=== PATIENT | female | born 1935 | race Caucasian/White ===

== ENCOUNTER 2021-04-24 06:14 | Emergency (ER) | payer MEDICARE, OTHER ==
[~2021-04-24] VITALS: Ht 157.4 cm; Wt 64.8 kg
--- NOTE | 2021-04-24 06:32 | ED GI ---
General Stated Complaint: RECTAL BLEEDING Source of Information: Patient (NU LYONS MD) History of Present Illness Date Seen by Provider: Apr 24, 2021 Time Seen by Provider: 06:27 Initial Comments 85-year-old female presents with bright red per rectum. She reports that this morning that she felt "uncomfortable" in her stomach. The she had a bowel movement and had some blood in it. She reports that she has had to total bowel movements with bright red blood. She is on Xarelto. She denies any actual pain just the uncomfortable feeling in her stomach. She reports that she has had normal stool. No recent dark tarry stool. No nausea or vomiting. No fevers chills or other systemic complaints. (SHANTA GOINS DO) Allergies and Home Medications Allergies Coded Allergies: No Known Drug Allergies (Unverified , 04/24/21) Home Medications Levothyroxine Sodium 50 Mcg Tablet, 50 MCG PO DAILY, (Reported) Last Action: New Order Metoprolol Succinate 100 Mg Tab.er.24h, 100 MG PO DAILY, (Reported) Last Action: New Order Rivaroxaban 20 Mg Tablet, 20 MG PO DAILY, (Reported) Last Action: New Order Patient Home Medication List Home Medication List Reviewed: Yes (SHANTA GOINS DO) Home Medication List Reviewed: Yes (NU LYONS MD) Review of Systems Review of Systems Constitutional: No chills, No fever; weakness Respiratory: Denies Cough, Denies Shortness of Air Cardiovascular: Denies Chest Pain, Denies Lightheadedness Gastrointestinal: See HPI; Denies Abdominal Pain, Denies Constipated, Denies Diarrhea, Denies Nausea; Rectal Bleeding; Denies Vomiting Genitourinary: Denies Burning, Denies Drainage Musculoskeletal: no symptoms reported Skin: no symptoms reported Psychiatric/Neurological: No Symptoms Reported Endocrine: No Symptoms Reported Hematologic/Lymphatic: No Symptoms Reported (SHANTA GOINS DO) Constitutional: No dizziness EENTM: No Symptoms Reported Genitourinary: Incontinence Hematologic/Lymphatic: Easy Bleeding (on xarelto), Easy Bruising (on xarelto) (NU LYONS MD) Past Cghumeh-Utjbuh-Urgaqb Hx Past Med/Social Hx: Reviewed Nursing Past Med/Soc Hx (SHANTA GOINS DO) Past Med/Social Hx: Reviewed and Corrections made (NU LYONS MD) Patient Social History Alcohol Use: Denies Use (NU LYONS MD) Past Medical History Surgeries: Yes Abdominal, Appendectomy, Bladder Surgery (pin up surgery), Gallbladder, Hysterectomy, Orthopedic (right knee) Respiratory: No Cardiac: Yes Atrial Fibrillation, Hypertension Neurological: No Reproductive Disorders: No Genitourinary: Yes (stress incontinence) Gastrointestinal: Yes Diverticulosis Musculoskeletal: Yes Arthritis Endocrine: Yes Hypothyroidsim HEENT: No Psychosocial: No Integumentary: No (NU LYONS MD) Physical Exam Vital Signs Vital Signs - First Documented 04/24/21 06:22 Temp 36.3 Pulse 95 Resp 14 B/P (MAP) 150/102 (118) O2 Delivery Room Air (NU LYONS MD) Vital Signs Capillary Refill : (SHANTA GOINS DO) Height/Weight/BMI Height: '" Weight: lbs. oz. kg; BMI Method: General Appearance: no apparent distress Neck: full range of motion Respiratory: lungs clear, normal breath sounds Cardiovascular: normal peripheral pulses, regular rate, rhythm, no edema Gastrointestinal: non tender, soft Extremities: normal range of motion, non-tender Neurologic/Psychiatric: alert, normal mood/affect, oriented x 3 Skin: normal color, warm/dry (SHANTA GOINS DO) Rectal: heme positive stool (blood present at rectum.); No hemorrhoids (no obvious hemorrhoids present on exam), No tenderness (NU LYONS MD) Progress/Results/Core Measures Results/Orders Lab Results Laboratory Tests Test 04/24/21 06:40 Range/Units White Blood Count 6.7 4.3-11.0 10^3/uL Red Blood Count 4.62 4.35-5.85 10^6/uL Hemoglobin 14.9 11.5-16.0 G/DL Hematocrit 45 35-52 % Mean Corpuscular Volume 98 80-99 FL Mean Corpuscular Hemoglobin 32 25-34 PG Mean Corpuscular Hemoglobin Concent 33 32-36 G/DL Red Cell Distribution Width 13.8 10.0-14.5 % Platelet Count 297 130-400 10^3/uL Mean Platelet Volume 9.6 7.4-10.4 FL Immature Granulocyte % (Auto) 0 % Neutrophils (%) (Auto) 61 42-75 % Lymphocytes (%) (Auto) 24 12-44 % Monocytes (%) (Auto) 9 0-12 % Eosinophils (%) (Auto) 4 0-10 % Basophils (%) (Auto) 1 0-10 % Neutrophils # (Auto) 4.1 1.8-7.8 X 10^3 Lymphocytes # (Auto) 1.6 1.0-4.0 X 10^3 Monocytes # (Auto) 0.6 0.0-1.0 X 10^3 Eosinophils # (Auto) 0.3 0.0-0.3 10^3/uL Basophils # (Auto) 0.1 0.0-0.1 10^3/uL Immature Granulocyte # (Auto) 0.0 0.0-0.1 10^3/uL Prothrombin Time 16.1 H 12.2-14.7 SEC INR Comment 1.3 0.8-1.4 Activated Partial Thromboplast Time 39 H 24-35 SEC Sodium Level 138 135-145 MMOL/L Potassium Level 4.6 3.6-5.0 MMOL/L Chloride Level 105 98-107 MMOL/L Carbon Dioxide Level 22 21-32 MMOL/L Anion Gap 11 5-14 MMOL/L Blood Urea Nitrogen 14 7-18 MG/DL Creatinine 0.83 0.60-1.30 MG/DL Estimat Glomerular Filtration Rate > 60 BUN/Creatinine Ratio 17 Glucose Level 98 70-105 MG/DL Calcium Level 9.0 8.5-10.1 MG/DL Corrected Calcium 9.1 8.5-10.1 MG/DL Total Bilirubin 1.1 H 0.1-1.0 MG/DL Aspartate Amino Transf (AST/SGOT) 31 5-34 U/L Alanine Aminotransferase (ALT/SGPT) 15 0-55 U/L Alkaline Phosphatase 136 40-136 U/L Total Protein 7.2 6.4-8.2 GM/DL Albumin 3.9 3.2-4.5 GM/DL (NU LYONS MD) My Orders Orders - NU LYONS MD Orthostatic Vital Signs (Adult (04/24/21 07:34) Ed Iv/Invasive Line Start (04/24/21 07:34) Ct Abdomen/Pelvis W (04/24/21 07:57) Iohexol Injection (Omnipaque 350 Mg/Ml 1 (04/24/21 08:00) Received Contrast (Hold Metformin- Contr (04/24/21 08:00) Ns (Ivpb) (Sodium Chloride 0.9% Ivpb Bag (04/24/21 08:00) (NU LYONS MD) Medications Given in ED Current Medications Medications Dose Ordered Sig/Alex Route Start Time Stop Time Status Last Admin Dose Admin Iohexol 100 ml ONCE ONCE IV 04/24/21 08:00 04/24/21 08:14 DC 04/24/21 08:17 100 ML Sodium Chloride 100 ml ONCE ONCE IV 04/24/21 08:00 04/24/21 08:14 DC 04/24/21 08:17 80 ML (NU LYONS MD) Vital Signs/I&O 04/24/21 04/24/21 06:22 07:28 Temp 36.3 Pulse 95 94 87 96 Resp 14 B/P (MAP) 150/102 (118) 181/94 (123) 174/82 (112) 171/89 (116) O2 Delivery Room Air (NU LYONS MD) Progress Progress Note #1: Progress Note I assumed care of the patient at shift change from Dr. Goins. On performing rectal exam on patient she had some bright red blood at rectum, but no bulging, pain, mass or obvious hemorrhoids. Orthostatic vital signs obtained and did not demonstrate signs of orthostasis. Pt reports feeling weak but denies dizziness, lightheaded sensation or chest pains. She denies straining with bowel movements or having constipation. Progress Note #2: Time: 07:51 Progress Note Reviewed with patient that her labs appear stable. She has hemoglobin 14.9. No evidence of severe anemia. Her orthostatic vital signs were not showing signs of orthostasis which helps indicate that her body is compensating and not showing evidence of severe loss of fluid. Her renal function and electrolytes appear stable as well. Her BUN is not elevated which is another sign that she is not metabolizing a lot of blood in her GI tract. The plain film x-rays were nonspecific and did not help to determine if she had a inflammatory process or abdominal mass or active bleeding in her gut. With the renal function stable will add on a CT scan of her abdomen and pelvis. Especially since she reports a history of diverticulosis. This would help to evaluate for diverticulitis or abdominal mass or intra-abdominal bleeding or colitis or rectal mass. Patient was agreeable to having the study done. States she otherwise was stable and hemodynamically doing well with a stable hemoglobin. As well as she has had a bowel movement here without further active bleeding other than the small amount of blood that was seen just at the rectum on my exam of her, she could qualify to have further outpatient work up. This is provided she is not having worsening symptoms or findings on the CT that warrant more emergent treatment. Progress Note #3: Time: 08:[address] scan shows diverticulosis but no diverticulitis or signs of intra-abdominal fluid or bleeding. She has an area in base of lung for consolidation as well as a 7 mm nodule in left lung. She denies symptoms of pneumonia and denies any cough or shortness of breath beyond her baseline. She states that she did have a history of pneumonia where she was sick for over 30 days. These findings may be related to some scarring and atelectasis. In her anal and rectal area she had a 2.8 x 1.7 cm area for possible hematoma. Patient is denying any pain in this area and deferred digital rectal exam. With the initial rectal exam I had only looked at external area since she had some blood present at rectum. She has used the restroom several times due to frequent urination and trouble controlling her bladder which is a chronic issue for her. Despite this she has not had any other bloody stools or blood in her stool. Counseled on follow-up and return cautions. Advised to get a colonoscopy as soon as possible. Counseled on return for worsening bleeding more so than just seen on but on the paper. Advised to try [id number] hemorrhoid treatment. Return in 6 to [address] Camarillo for a CT scan to further evaluate the pulmonary nodule. This would help ensure that it was not changing in size or characterization. Patient voiced understanding and will discharge to home with strict return precautions and education on follow-up for further work-up of the rectal bleeding (NU LYONS MD) Diagnostic Imaging Diagonstic Imaging: Xray Plain Films/CT/US/NM/MRI: abdomen Comments NAME: SERENA MIRZA [facility] REC#: [id number] PT STATUS: REG ER : 1935 PHYSICIAN: SHANTA GOINS DO ADMIT DATE: 04/24/21/ER FS Draft Date of Exam:04/24/21 ABDOMEN FLAT & UPRIGHT/DECUB INDICATION: Abdominal pain, rectal bleeding, weakness. TECHNIQUE: Supine and upright view of the abdomen 6:52 AM CORRELATION STUDY: None FINDINGS: Heart size appears enlarged. Lung bases otherwise clear. Presumed cholecystectomy clips in the right upper quadrant. Mild amount of gaseous distention of the stomach. There are scattered gas-filled loops of small bowel. Gas and stool through the colon. Definitive obstructive appearance is not suggested. There is no differential air-fluid levels. Mild thoracolumbar scoliotic curvature . IMPRESSION: 1. Gas-filled loops bowel throughout the gastrointestinal tract. May reflect a mild ileus. Underlying bowel obstruction not suggested. Dictated on workstation # [id number] Dict: 04/24/21 0702 Trans: 04/24/21 0709 CV [id number] Interpreted by: PEPITO TERRAZAS DO Electronically signed by: Reviewed: Reviewed by Me Diagonstic Imaging: CT Plain Films/CT/US/NM/MRI: abdomen, pelvis Comments NAME: SERENA MIRZA [facility] REC#: [id number] PT STATUS: REG ER : 1935 PHYSICIAN: NU LYONS MD ADMIT DATE: 04/24/21/ER FS Draft Date of Exam:04/24/21 CT ABDOMEN/PELVIS W EXAMINATION: CT abdomen and pelvis with intravenous contrast. TECHNIQUE: Multiple contiguous axial images were obtained through the abdomen and pelvis after the uneventful administration of intravenous contrast. All CT scans use one or more of the following dose optimizing techniques: automated exposure control, MA and/or KvP adjustment based on patient size and exam type or iterative reconstruction. HISTORY: rectal bleeding, on Xarelto, hx diverticulosis COMPARISON: None available. FINDINGS: Lung bases: There are reticulonodular opacities and consolidation within the right lung base. There is a 0.7 cm left lower lobe subpleural pulmonary nodule. Solid organs: The liver is normal without focal lesion. The gallbladder is surgically absent. There is no biliary ductal dilation. Pancreas is normal. Spleen is normal. Adrenal glands are normal. There is left renal cortical scarring. The kidneys are otherwise unremarkable without hydronephrosis. Bowel: There is a small hiatal hernia. There is no bowel obstruction. Scattered colonic diverticulosis. No findings of acute appendicitis. Peritoneum: There is no intraperitoneal free fluid or free air. No suspicious lymphadenopathy. Vasculature: Calcification of the aorta without aneurysm. Musculoskeletal: Degenerative changes of the spine without suspicious osseous lesion or compression fracture. There is a focus of hyperdensity along the left perineum near the anal verge which measures 1.7 x 2.8 cm (series 3 image 79). Pelvis: The uterus is surgically absent. No adnexal mass. The urinary bladder is normal. IMPRESSION: 1. A focus of hyperdensity along the left perineum near the anal verge measuring 2.8 x 1.7 cm. This could represent a small hematoma. Recommend correlation with physical exam. 2. Colonic diverticulosis without findings of diverticulitis. 3. Reticulonodular opacities and consolidation within the right lung base. This finding could be seen with pneumonia. 4. A 0.7 cm left lower lobe subpleural pulmonary nodule. Recommend followup CT chest in 6-12 months to document stability or resolution. Dictated on workstation # [id number] Dict: 04/24/21 0830 Trans: 04/24/21 0836 [facility] [id number] Interpreted by: RODNEY ZUÑIGA DO Electronically signed by: (NU LYONS MD) Departure Impression Primary Impression: Rectal bleeding Additional Impressions: Pulmonary nodule seen on imaging study Diverticulosis Disposition: HOME, SELF-CARE Condition: Stable Departure-Patient Inst. Decision time for Depature: 09:00 (NU LYONS MD) Referrals: MADDY JOHNSNO MAXWELL MD (PCP/Family) Primary Care Physician Patient Instructions: Bloody Stools, Adult ED, Pulmonary Nodule Add. Discharge Instructions: Try using the medicine you have for hemorrhoid treatment to see if that helps resolve your rectal bleeding. Call Dr. Camarillo or the surgeon Dr. Johnson about having a colonoscopy set up as soon as possible to further check into your bleeding from the rectum. In the meantime, If you have worsening bleeding and recurrent bloody stools, more than just the bright red blood on the toilet paper when you wipe to clean yourself, then return or seek medical care for further evaluation. The CT scan had also shown an area with a 7 mm pulmonary nodule in the bottom of your left lung. Since this is a small nodule it is something that can be followed by a repeat CT scan in 6 to 12 months to ensure that it is not getting bigger or changing. This might be from old scarring and previous infection but the repeat CT scan in 6 to 12 months would help check to see if it was something more to worry about. SHANTA GOINS DO Apr 24, 2021 06:32 NU LYONS MD Apr 24, 2021 07:08
--- NOTE | 2021-04-24 07:10 | Diagnostic Imaging Report ---
INDICATION: Abdominal pain, rectal bleeding, weakness. TECHNIQUE: Supine and upright view of the abdomen 6:52 AM CORRELATION STUDY: None FINDINGS: Heart size appears enlarged. Lung bases otherwise clear. Presumed cholecystectomy clips in the right upper quadrant. Mild amount of gaseous distention of the stomach. There are scattered gas-filled loops of small bowel. Gas and stool through the colon. Definitive obstructive appearance is not suggested. There is no differential air-fluid levels. Mild thoracolumbar scoliotic curvature . IMPRESSION: 1. Gas-filled loops bowel throughout the gastrointestinal tract. May reflect a mild ileus. Underlying bowel obstruction not suggested. Dictated by: Dictated on workstation # [id number]
[2021-04-24 07:28] VITALS: BP_SYST 171; BP_SYST 174; BP_SYST 181; BP_DIAS 82; BP_DIAS 89; BP_DIAS 94
[2021-04-24 07:28] LABS: BASOPHILS # (AUTO) 0.1 10^3/uL (0.0-0.1); BASOPHILS % (AUTO) 1 % (0-10); EOSINOPHILS # (AUTO) 0.3 10^3/uL (0.0-0.3); EOSINOPHILS % (AUTO) 4 % (0-10); HEMATOCRIT 45 % (35-52); HEMOGLOBIN 14.9 G/DL (11.5-16.0); LYMPHOCYTES # (AUTO) 1.6 X 10^3 (1.0-4.0); LYMPHOCYTES % (AUTO) 24 % (12-44); MEAN CORPUSCULAR HEMOGLOBIN 32 PG (25-34); MEAN CORPUSCULAR HGB CONC 33 G/DL (32-36); MEAN CORPUSCULAR VOLUME 98 FL (80-99); MEAN PLATELET VOLUME 9.6 FL (7.4-10.4); MONOCYTES # (AUTO) 0.6 X 10^3 (0.0-1.0); MONOCYTES % (AUTO) 9 % (0-12); NEUTROPHILS # (AUTO) 4.1 X 10^3 (1.8-7.8); NEUTROPHILS % (AUTO) 61 % (42-75); PLATELET COUNT 297 10^3/uL (130-400); WHITE BLOOD COUNT 6.7 10^3/uL (4.3-11.0)
[2021-04-24] MEDS ORDERED: RIVA20TA PO (07:29)
[2021-04-24] MEDS ORDERED: LEVO50TA6 PO (07:29)
[2021-04-24] MEDS ORDERED: MTP100TCR PO (07:29)
[2021-04-24 07:30] LABS: BUN/CREATININE RATIO 17; CARBON DIOXIDE 22 MMOL/L (21-32); CHLORIDE 105 MMOL/L (98-107); CREATININE SERUM 0.83 MG/DL (0.60-1.30); GFR ESTIMATED > 60; GLUCOSE 98 MG/DL (70-105); POTASSIUM 4.6 MMOL/L (3.6-5.0); SODIUM 138 MMOL/L (135-145)
[2021-04-24 07:32] LABS: BILIRUBIN,TOTAL 1.1 MG/DL (0.1-1.0)
[2021-04-24 07:35] LABS: ALKALINE PHOSPHATASE 136 U/L (40-136)
[2021-04-24 07:36] LABS: ALANINE AMINOTRANSFERASE 15 U/L (0-55); ALBUMIN 3.9 GM/DL (3.2-4.5); TOTAL PROTEIN 7.2 GM/DL (6.4-8.2)
[2021-04-24 07:38] LABS: INR 1.3 (0.8-1.4); PROTHROMBIN TIME PATIENT 16.1 SEC (12.2-14.7)
[2021-04-24] MEDS ORDERED: IOHEXOL 350 MG/ML 100 ML (OMNIPAQUE 350) VIAL IV ONE (08:00)
[2021-04-24] MEDS ORDERED: NS 100 ML (IVPB) BAG IV ONE (08:00)
[2021-04-24] MEDS ORDERED: HOLD METFORMIN - RECEIVED CONTRAST 20 ML VIAL IV SCH (08:00)
--- NOTE | 2021-04-24 08:37 | Diagnostic Imaging Report ---
EXAMINATION: CT abdomen and pelvis with intravenous contrast. TECHNIQUE: Multiple contiguous axial images were obtained through the abdomen and pelvis after the uneventful administration of intravenous contrast. All CT scans use one or more of the following dose optimizing techniques: automated exposure control, MA and/or KvP adjustment based on patient size and exam type or iterative reconstruction. HISTORY: rectal bleeding, on Xarelto, hx diverticulosis COMPARISON: None available. FINDINGS: Lung bases: There are reticulonodular opacities and consolidation within the right lung base. There is a 0.7 cm left lower lobe subpleural pulmonary nodule. Solid organs: The liver is normal without focal lesion. The gallbladder is surgically absent. There is no biliary ductal dilation. Pancreas is normal. Spleen is normal. Adrenal glands are normal. There is left renal cortical scarring. The kidneys are otherwise unremarkable without hydronephrosis. Bowel: There is a small hiatal hernia. There is no bowel obstruction. Scattered colonic diverticulosis. No findings of acute appendicitis. Peritoneum: There is no intraperitoneal free fluid or free air. No suspicious lymphadenopathy. Vasculature: Calcification of the aorta without aneurysm. Musculoskeletal: Degenerative changes of the spine without suspicious osseous lesion or compression fracture. There is a focus of hyperdensity along the left perineum near the anal verge which measures 1.7 x 2.8 cm (series 3 image 79). Pelvis: The uterus is surgically absent. No adnexal mass. The urinary bladder is normal. IMPRESSION: 1. A focus of hyperdensity along the left perineum near the anal verge measuring 2.8 x 1.7 cm. This could represent a small hematoma. Recommend correlation with physical exam. 2. Colonic diverticulosis without findings of diverticulitis. 3. Reticulonodular opacities and consolidation within the right lung base. This finding could be seen with pneumonia. 4. A 0.7 cm left lower lobe subpleural pulmonary nodule. Recommend followup CT chest in 6-12 months to document stability or resolution. Dictated by: Dictated on workstation # [id number]
[2021-04-24 09:14] VITALS: BP 172/93
== END 2021-04-24 09:14 | disposition home or self-care (01) ==
LOC: ER FS 06:19
DX: K62.5 Hemorrhage of anus and rectum (principal); R91.1 Solitary pulmonary nodule; K57.30 Diverticulosis of large intestine without perforation or abscess without bleeding; I10 Essential (primary) hypertension; E03.9 Hypothyroidism, unspecified; I48.91 Unspecified atrial fibrillation; Z79.890 Hormone replacement therapy; Z79.01 Long term (current) use of anticoagulants; Z79.899 Other long term (current) drug therapy
CPT/HCPCS: 36415; 74019; 74177; 80053; 85025; 85610; 85730

== ENCOUNTER 2021-12-30 10:04 | Emergency (ER) | payer MEDICARE ==
[~2021-12-30 10:04] MED LIST: LEVO50TA6 PO; MTP100TCR PO; RIVA20TA PO
[2021-12-30] MEDS ORDERED: ONDANSETRON 4 MG/2 ML (SDV) Z0FRAN IVP ONE (10:15)
[2021-12-30] MEDS ORDERED: ONDANSETRON 4 MG/2 ML (SDV) Z0FRAN ONE (10:15)
--- NOTE | 2021-12-30 10:15 | ED Neurological Problem ---
General Stated Complaint: STROKE,SLURRED SPEECH,LEFT SIDE FLACID History of Present Illness Date Seen by Provider: Dec 30, 2021 Time Seen by Provider: 10:09 Initial Comments 86-year-old female brought in by EMS. Patient has slurred speech, left-sided weakness and bilateral extremities and face. Patient was last visited with yesterday afternoon by family member and reports she was good. Patient reports that she fell sometime during the night but unsure what time. Patient is alert and orientated. Allergies and Home Medications Allergies Coded Allergies: No Known Drug Allergies (Unverified , 04/24/21) Patient Home Medication List Home Medication List Reviewed: Yes Levothyroxine Sodium (Levothyroxine Sodium) 50 Mcg Tablet, 50 MCG PO DAILY, (Reported) Entered as Reported by: NU LYONS on 04/24/21728 Metoprolol Succinate (Metoprolol Succinate) 100 Mg Tab.er.24h, 100 MG PO DAILY, (Reported) Entered as Reported by: NU LYONS on 04/24/21728 Rivaroxaban (Xarelto) 20 Mg Tablet, 20 MG PO DAILY, (Reported) Entered as Reported by: NU LYONS on 04/24/21728 Review of Systems Review of Systems Constitutional: see HPI Respiratory: no symptoms reported Cardiovascular: no symptoms reported Gastrointestinal: no symptoms reported Musculoskeletal: see HPI Skin: no symptoms reported Psychiatric/Neurological: See HPI Past Aqttmrf-Iplngo-Zjzaeg Hx Seasonal Allergies Seasonal Allergies: No Past Medical History Surgeries: Yes Abdominal, Appendectomy, Bladder Surgery, Gallbladder, Hysterectomy, Orthopedic Respiratory: No Cardiac: Yes Atrial Fibrillation, Hypertension Neurological: No Reproductive Disorders: No Genitourinary: Yes (stress incontinence) Gastrointestinal: Yes Diverticulosis Musculoskeletal: Yes Arthritis Endocrine: Yes Hypothyroidsim HEENT: No Cancer: No Psychosocial: No Integumentary: No Blood Disorders: No Physical Exam Vital Signs Vital Signs - First Documented 12/30/21 12/30/21 10:04 11:45 Temp 36.0 Pulse 115 Resp 19 B/P (MAP) 196/114 (141) Pulse Ox 96 O2 Delivery Nasal Cannula O2 Flow Rate 2.00 Capillary Refill : Height, Weight, BMI Height: '" Weight: lbs. oz. kg; 26.00 BMI Method: General Appearance: no apparent distress, other (Obvious right-sided facial droop) Respiratory: lungs clear, normal breath sounds Cardiovascular: tachycardia, irregularly irregular Gastrointestinal: soft Neurologic/Psychiatric: alert, other (Left-sided facial droop left-sided weakness upper and lower extremities) Crainal Nerves: abnormal speech, facial droop Motor/Sensory: weak motor strength LUE, weak motor strength LLE Skin: normal color, warm/dry Stroke NIH Stroke Scale Assessment Select: Initial Level of Consciousness: 0=Alert (0), Level of Consciousness- Questions: 0=Answers both month/age (0), LOC Commands: 1=Performs one task (1), Gaze: Partial Gaze Palsy (1), Facial Movement (Facial Paresis): 3=Complete paralysis (3), Motor Function-Arms Right: 0=No drift (0), Motor Function-Arms Left: 4=No movement (4), Motor Function-Legs Right: 0=No drift (0), Motor Function-Legs Left: 4=No movement (4), Limb Ataxia: 1=Present in one limb (1), Best Language: 1=Mild to moderat aphasia (1), Dysarthria: 1=Mild to moderate loss (1), Extinction & Inattention: 1=Visual,tactile,auditory (1), Total: 17 Progress/Results/Core Measures Results/Orders Lab Results Laboratory Tests Test 12/30/21 10:10 12/30/21 10:20 12/30/21 10:37 Range/Units Sodium Level 139 135-145 MMOL/L Potassium Level 3.7 3.6-5.0 MMOL/L Chloride Level 101 98-107 MMOL/L Carbon Dioxide Level 22 21-32 MMOL/L Anion Gap 16 H 5-14 MMOL/L Blood Urea Nitrogen 13 7-18 MG/DL Creatinine 0.63 0.60-1.30 MG/DL Estimat Glomerular Filtration Rate 86 BUN/Creatinine Ratio 21 Glucose Level 166 H 70-105 MG/DL Calcium Level 9.4 8.5-10.1 MG/DL Corrected Calcium 9.2 8.5-10.1 MG/DL Total Bilirubin 1.6 H 0.1-1.0 MG/DL Aspartate Amino Transf (AST/SGOT) 34 5-34 U/L Alanine Aminotransferase (ALT/SGPT) 17 0-55 U/L Alkaline Phosphatase 145 H 40-136 U/L Troponin I < 0.30 <0.30 NG/ML Total Protein 8.3 H 6.4-8.2 GM/DL Albumin 4.3 3.2-4.5 GM/DL White Blood Count 11.9 H 4.3-11.0 10^3/uL Red Blood Count 4.63 3.80-5.11 10^6/uL Hemoglobin 15.2 11.5-16.0 g/dL Hematocrit 45 35-52 % Mean Corpuscular Volume 97 80-99 fL Mean Corpuscular Hemoglobin 33 25-34 pg Mean Corpuscular Hemoglobin Concent 34 32-36 g/dL Red Cell Distribution Width 13.2 10.0-14.5 % Platelet Count 132 130-400 10^3/uL Mean Platelet Volume 10.4 9.0-12.2 fL Immature Granulocyte % (Auto) 0 % Neutrophils (%) (Auto) 89 H 42-75 % Lymphocytes (%) (Auto) 7 L 12-44 % Monocytes (%) (Auto) 4 0-12 % Eosinophils (%) (Auto) 0 0-10 % Basophils (%) (Auto) 0 0-10 % Neutrophils # (Auto) 10.5 H 1.8-7.8 10^3/uL Lymphocytes # (Auto) 0.8 L 1.0-4.0 10^3/uL Monocytes # (Auto) 0.4 0.0-1.0 10^3/uL Eosinophils # (Auto) 0.0 0.0-0.3 10^3/uL Basophils # (Auto) 0.0 0.0-0.1 10^3/uL Immature Granulocyte # (Auto) 0.0 0.0-0.1 10^3/uL Neutrophils % (Manual) 91 % Lymphocytes % (Manual) 2 % Monocytes % (Manual) 7 % Prothrombin Time 15.2 H 12.2-14.7 SEC INR Comment 1.2 0.8-1.4 Activated Partial Thromboplast Time 30 24-35 SEC D-Dimer 2.31 H 0.00-0.49 UG/ML Glucometer 158 H 70-110 MG/DL Urine Color YELLOW Urine Clarity CLEAR Urine pH 7.0 5-9 Urine Specific [place] 1.025 H 1.016-1.022 Urine Protein 2+ H NEGATIVE Urine Glucose (UA) TRACE H NEGATIVE Urine Ketones NEGATIVE NEGATIVE Urine Nitrite NEGATIVE NEGATIVE Urine Bilirubin NEGATIVE NEGATIVE Urine Urobilinogen 0.2 < = 1.0 MG/DL Urine Leukocyte Esterase NEGATIVE NEGATIVE Urine RBC (Auto) 2+ H NEGATIVE Urine RBC >100 H /HPF Urine WBC NONE /HPF Urine Squamous Epithelial Cells 2-5 /HPF Urine Crystals NONE /LPF Urine Bacteria NEGATIVE /HPF Urine Casts PRESENT /LPF Urine Hyaline Casts 2-5 H /LPF Urine Mucus NEGATIVE /LPF Urine Culture Indicated NO My Orders Orders - GOINS,SHANTA L DO Ct Head Wo-R/O Stroke (12/30/21 10:05) Cbc With Automated Diff (12/30/21 10:05) Protime With Inr (12/30/21 10:05) Partial Thromboplastin Time (12/30/21 10:05) Comprehensive Metabolic Panel (12/30/21 10:05) Fibrin Degradation Products (12/30/21 10:05) Troponin I Fs (12/30/21 10:05) Ua Culture If Indicated (12/30/21 10:05) Chest 1 View Ap/Pa Only (12/30/21 10:05) Ekg Tracing (12/30/21 10:05) Accucheck Stat ONCE (12/30/21 10:05) Ed Iv/Invasive Line Start (12/30/21 10:05) Ed Iv/Invasive Line Start (12/30/21 10:05) Vital Signs Stroke Patient Q15M (12/30/21 10:05) O2 (12/30/21 10:05) Intake & Output 06,14,22 (12/30/21 10:05) Monitor-Rhythm Ecg Trace Only (12/30/21 10:05) Dysphagia Screening Tool (12/30/21 10:05) Ondansetron Injection (Zofran Injectio (12/30/21 10:15) Ondansetron Injection (Zofran Injectio (12/30/21 10:15) Ns (Ivpb) (Sodium C... W/Nicardipine Iv (12/30/21 10:30) Nicardipine Iv For Drip (Cardene I.V. (O (12/30/21 10:21) Ns (Ivpb) (Sodium Chloride 0.9%) (12/30/21 10:22) Manual Differential (12/30/21 10:20) Metoprolol Tartrate Injection (Lopressor (12/30/21 11:30) Medications Given in ED Current Medications Medications Dose Ordered Sig/Alex Route Start Time Stop Time Status Last Admin Dose Admin Metoprolol Tartrate 5 mg ONCE ONCE IV 12/30/21 11:30 12/30/21 11:31 DC 12/30/21 11:28 5 MG Ondansetron HCl 4 mg ONCE ONCE IVP 12/30/21 10:15 12/30/21 10:16 DC 12/30/21 10:15 4 MG Vital Signs/I&O 12/30/21 12/30/21 10:04 11:45 Temp 36.0 36.0 Pulse 115 134 Resp 19 24 B/P (MAP) 196/114 (141) 148/73 Pulse Ox 96 94 O2 Delivery Nasal Cannula Nasal Cannula O2 Flow Rate 2.00 Progress Progress Note : Progress Note Patient with a intraparenchymal hemorrhage. Patient accepted to neuro ICU [facility]. Patient will be transferred via helicopter. Patient was stable but guarded condition upon transfer CT Read Date: Dec 30, 2021 CT Results/Progress Notes Date of Exam:12/30/21 CT HEAD WO-R/O STROKE PROCEDURE: CT head wo r/o stroke. TECHNIQUE: Multiple contiguous axial images were obtained through the brain without the use of intravenous contrast. Auto Exposure Controls were utilized during the CT exam to meet ALARA standards for radiation dose reduction. INDICATION: Left-sided weakness, facial droop, hypertension COMPARISON: None FINDINGS: The ventricles and cortical sulci are mildly prominent, consistent with generalized parenchymal volume loss. There is a large heterogeneous intraparenchymal hemorrhage in the right occipital region measuring up to 6.3 x 3.8 cm on axial imaging. This causes effacement of the posterior right lateral ventricle. There is no significant midline shift. Scattered areas of hypoattenuation are seen in the white matter, consistent with chronic microvascular disease. No CT evidence of acute territorial ischemia is seen. The calvarium appears intact. Visualized paranasal sinuses are clear. IMPRESSION: 1. Large right occipital intraparenchymal hemorrhage with mild associated mass effect. Departure Impression Primary Impression: Stroke due to intracerebral hemorrhage Disposition: XF SHT-TRM HOSP Condition: Critical Transfer Transfer Reason: Exceeds level of care Time Spoke to Accepting Phy: 10:45 Transfer Progress Notes Patient accepted the [facility], neuro ICU by Transfer Facility: [facility] Method of Transfer: Air Departure-Patient Inst. Referrals: SELF,GEETA RESENDIZ (PCP/Family) Primary Care Physician SHANTA GOINS DO Dec 30, 2021 10:15
[2021-12-30] MEDS ORDERED: niCARdipine IV FOR DRIP 50 MG KIT ONE (10:21)
[2021-12-30] MEDS ORDERED: NS (IVPB) 250 ML ONE (10:22)
[2021-12-30 10:25] LABS: BASOPHILS % (AUTO) 0 % (0-10); EOSINOPHILS % (AUTO) 0 % (0-10); HEMATOCRIT 45 % (35-52); HEMOGLOBIN 15.2 g/dL (11.5-16.0); LYMPHOCYTES # (AUTO) 0.8 10^3/uL (1.0-4.0); LYMPHOCYTES % (AUTO) 7 % (12-44); MEAN CORPUSCULAR HEMOGLOBIN 33 pg (25-34); MEAN CORPUSCULAR HGB CONC 34 g/dL (32-36); MEAN CORPUSCULAR VOLUME 97 fL (80-99); MEAN PLATELET VOLUME 10.4 fL (9.0-12.2); MONOCYTES # (AUTO) 0.4 10^3/uL (0.0-1.0); MONOCYTES % (AUTO) 4 % (0-12); NEUTROPHILS # (AUTO) 10.5 10^3/uL (1.8-7.8); NEUTROPHILS % (AUTO) 89 % (42-75); PLATELET COUNT 132 10^3/uL (130-400); WHITE BLOOD COUNT 11.9 10^3/uL (4.3-11.0)
--- NOTE | 2021-12-30 10:28 | Diagnostic Imaging Report ---
PROCEDURE: CT head wo r/o stroke. TECHNIQUE: Multiple contiguous axial images were obtained through the brain without the use of intravenous contrast. Auto Exposure Controls were utilized during the CT exam to meet ALARA standards for radiation dose reduction. INDICATION: Left-sided weakness, facial droop, hypertension COMPARISON: None FINDINGS: The ventricles and cortical sulci are mildly prominent, consistent with generalized parenchymal volume loss. There is a large heterogeneous intraparenchymal hemorrhage in the right occipital region measuring up to 6.3 x 3.8 cm on axial imaging. This causes effacement of the posterior right lateral ventricle. There is no significant midline shift. Scattered areas of hypoattenuation are seen in the white matter, consistent with chronic microvascular disease. No CT evidence of acute territorial ischemia is seen. The calvarium appears intact. Visualized paranasal sinuses are clear. IMPRESSION: 1. Large right occipital intraparenchymal hemorrhage with mild associated mass effect. Findings discussed with SHANTA GOINS DO by Dr. Vital, on 12/30/2021 10:21 AM. Dictated by: Dictated on workstation # [id number]
[2021-12-30] MEDS ORDERED: niCARdipine IV 50 MG in NS (IVPB) 230 ML IV SCH (10:30)
[2021-12-30 10:34] LABS: ALANINE AMINOTRANSFERASE 17 U/L (0-55); ALBUMIN 4.3 GM/DL (3.2-4.5); ALKALINE PHOSPHATASE 145 U/L (40-136); BILIRUBIN,TOTAL 1.6 MG/DL (0.1-1.0); BUN/CREATININE RATIO 21; CALCIUM 9.4 MG/DL (8.5-10.1); CARBON DIOXIDE 22 MMOL/L (21-32); CHLORIDE 101 MMOL/L (98-107); CREATININE SERUM 0.63 MG/DL (0.60-1.30); GFR ESTIMATED 86; GLUCOSE 166 MG/DL (70-105); POTASSIUM 3.7 MMOL/L (3.6-5.0); SODIUM 139 MMOL/L (135-145); TOTAL PROTEIN 8.3 GM/DL (6.4-8.2)
[2021-12-30 10:40] LABS: LYMPHOCYTES % (MANUAL) 2 %; MONOCYTES % (MANUAL) 7 %; NEUTROPHILS % (MANUAL) 91 %
--- NOTE | 2021-12-30 10:41 | Diagnostic Imaging Report ---
INDICATION: Slurred speech, facial droop, hypertension FINDINGS: The heart is enlarged. There is mild prominence of the vascularity. There is some prominence interstitial lung markings bilaterally in part if not entirely chronic. It would be difficult to exclude a superimposed component of interstitial edema or pneumonitis particularly in the patient's right upper lobe where lung markings are somewhat more dense. The hilar and mediastinal contours were unremarkable. No effusion or pneumothorax. IMPRESSION: Cardiomegaly with some prominence of interstitial lung markings and part chronic however a component of edema or pneumonitis particularly at the level of the right upper lobe could not be excluded. No effusion or pneumothorax . Dictated by: Dictated on workstation # [id number]
[2021-12-30 10:43] LABS: BILIRUBIN,URINE NEGATIVE (NEGATIVE); CLARITY,URINE CLEAR; COLOR,URINE YELLOW; GLUCOSE, URINE (UA) TRACE (NEGATIVE); KETONES,URINE NEGATIVE (NEGATIVE); LEUKOCYTE ESTERASE ,URINE NEGATIVE (NEGATIVE); NITRITE,URINE NEGATIVE (NEGATIVE); PROTEIN,URINE 2+ (NEGATIVE)
[2021-12-30 10:44] LABS: INR 1.2 (0.8-1.4); PROTHROMBIN TIME PATIENT 15.2 SEC (12.2-14.7)
[2021-12-30 10:47] LABS: BACTERIA,URINE NEGATIVE /HPF; RBC,URINE >100 /HPF
[2021-12-30 10:48] LABS: FIBRIN DEGRADATION PRODUCTS 2.31 UG/ML (0.00-0.49)
[2021-12-30] MEDS ORDERED: meTOprolol 5 MG/5 ML (LOPRESSOR) VIAL IV ONE (11:30)
[2021-12-30 11:45] VITALS: BP 148/73
== END 2021-12-30 11:45 | disposition short-term general hospital (02) ==
LOC: EDUNIT# 10:04 → ER FS 10:05
DX: I61.9 Nontraumatic intracerebral hemorrhage, unspecified (principal); I10 Essential (primary) hypertension; I48.91 Unspecified atrial fibrillation; E03.9 Hypothyroidism, unspecified; Z79.01 Long term (current) use of anticoagulants; Z79.890 Hormone replacement therapy; Z79.899 Other long term (current) drug therapy
CPT/HCPCS: 36415; 51702; 70450; 71045; 80053; 81000; 82947; 84484; 85007; 85027; 85379; 85610; 85730; 93005; 93041; 99291

== ENCOUNTER → 2022-01-15 | Outpatient (CLI) | payer MEDICARE ==
[2022-01-15 16:02] LABS: HEMATOCRIT 42 % (35-52); HEMOGLOBIN 14.3 g/dL (11.5-16.0); MEAN CORPUSCULAR HEMOGLOBIN 33 pg (25-34); MEAN CORPUSCULAR HGB CONC 35 g/dL (32-36); MEAN CORPUSCULAR VOLUME 96 fL (80-99); MEAN PLATELET VOLUME 9.7 fL (9.0-12.2); PLATELET COUNT 531 10^3/uL (130-400); WHITE BLOOD COUNT 15.5 10^3/uL (4.3-11.0)
[2022-01-15 16:05] LABS: CLARITY,URINE TURBID; COLOR,URINE RED; GLUCOSE, URINE (UA) TRACE (NEGATIVE); KETONES,URINE 1+ (NEGATIVE); LEUKOCYTE ESTERASE ,URINE 3+ (NEGATIVE); NITRITE,URINE POSITIVE (NEGATIVE); PROTEIN,URINE 3+ (NEGATIVE)
[2022-01-15 16:34] LABS: BACTERIA,URINE LARGE /HPF; BILIRUBIN,URINE 3+ (NEGATIVE); RBC,URINE TNTC /HPF; SQUAMOUS EPITHELIAL CELL,UR 0-2 /HPF; WBC,URINE 50-100 /HPF
[2022-01-15 16:42] LABS: ALBUMIN 2.8 GM/DL (3.2-4.5); BILIRUBIN,TOTAL 0.9 MG/DL (0.1-1.0); CALCIUM 8.6 MG/DL (8.5-10.1); CREATININE SERUM 0.65 MG/DL (0.60-1.30); POTASSIUM 4.8 MMOL/L (3.6-5.0); TOTAL PROTEIN 5.9 GM/DL (6.4-8.2)
== END ==
PROVIDERS: ATTEND Family Medicine
DX: R31.9 Hematuria, unspecified (principal)
CPT/HCPCS: 36415; 80053; 81000; 85027; 87077; 87088

== ENCOUNTER 2022-01-16 17:50 | Emergency (ER) | payer MEDICARE ==
[2022-01-16 18:05] VITALS: BP 135/62
[2022-01-16] MEDS ORDERED: NS IV 1000 ML 1,000 ML IV STA (18:07)
[2022-01-16 18:15] LABS: BASOPHILS # (AUTO) 0.1 10^3/uL (0.0-0.1); BASOPHILS % (AUTO) 0 % (0-10); EOSINOPHILS # (AUTO) 0.1 10^3/uL (0.0-0.3); EOSINOPHILS % (AUTO) 1 % (0-10); HEMATOCRIT 39 % (35-52); HEMOGLOBIN 13.1 g/dL (11.5-16.0); LYMPHOCYTES # (AUTO) 1.4 10^3/uL (1.0-4.0); LYMPHOCYTES % (AUTO) 9 % (12-44); MEAN CORPUSCULAR HEMOGLOBIN 33 pg (25-34); MEAN CORPUSCULAR HGB CONC 33 g/dL (32-36); MEAN CORPUSCULAR VOLUME 98 fL (80-99); MEAN PLATELET VOLUME 9.2 fL (9.0-12.2); MONOCYTES # (AUTO) 1.6 10^3/uL (0.0-1.0); MONOCYTES % (AUTO) 10 % (0-12); NEUTROPHILS # (AUTO) 12.7 10^3/uL (1.8-7.8); NEUTROPHILS % (AUTO) 80 % (42-75); PLATELET COUNT 492 10^3/uL (130-400)
[2022-01-16 18:20] LABS: INR 1.6 (0.8-1.4); PROTHROMBIN TIME PATIENT 19.2 SEC (12.2-14.7)
--- NOTE | 2022-01-16 18:22 | Diagnostic Imaging Report ---
INDICATION: Cough Portable AP view of the chest is obtained with comparison made study of 12/30/2021. Heart size and pulmonary vascularity are at the upper limits of normal. There is mild overall improvement in aeration of the lungs however there is an approximately 1 cm nodule now visible in the lateral aspect of the right upper lobe. No pneumothorax identified. There is slight blunting of the left costophrenic sulcus. IMPRESSION: Improving pulmonary venous congestion, possibly on the basis of congestive heart failure. There may be a small amount of left pleural fluid present. Approximately 1 cm nodular focus projects over the lateral aspect of the right upper lobe. The possibility of lung mass such as developing tumor is not excluded. CT imaging of the chest should be considered for assessment. Dictated by: Dictated on workstation # [id number]
[2022-01-16 18:26] LABS: BILIRUBIN,URINE NEGATIVE (NEGATIVE); CLARITY,URINE SL CLOUDY; COLOR,URINE YELLOW; GLUCOSE, URINE (UA) NEGATIVE (NEGATIVE); KETONES,URINE NEGATIVE (NEGATIVE); LEUKOCYTE ESTERASE ,URINE 1+ (NEGATIVE); NITRITE,URINE NEGATIVE (NEGATIVE); PROTEIN,URINE NEGATIVE (NEGATIVE)
--- NOTE | 2022-01-16 18:29 | ED General ---
General Chief Complaint: General Problems/Pain Stated Complaint: PNEMONIA,UTI SYMPTOMS Source of Information: Patient, EMS, Skilled Nursing Records Exam Limitations: Physical Impairments (recent stroke and slow to answer questions) History of Present Illness Date Seen by Provider: Jan 16, 2022 Time Seen by Provider: 17:52 Initial Comments 86-year-old female presenting for [facility] due to having findings for right lower lobe infiltrate and UTI. She has a catheter that was placed yesterday based on her symptoms. She recently had a stroke and was at [facility] in [place]. She has been at [facility] for the last week. She did have a PEG tube placed for dysphagia and is only taking a few ice chips by mouth. She had findings of a UTI yesterday and when the chest x-ray came back today showing signs of a infiltrate or pneumonia the on-call provider instructed the staff to send her in for evaluation and felt she needed treatment in the hospital rather than at the longterm for her infection. She has been hemodynamically stable and has oxygen saturation 95-97% on room air with no respiratory distress. She does have chronic atrial fibrillation and currently her heart rate is 100-120 and irregularly irregular. Timing/Duration: 1-2 Days Associated Systoms: No Chest Pain; Cough; No Diaphoresis, No Fever/Chills, No Headaches; Malaise; No Nausea/Vomiting, No Seizure, No Shortness of Air, No Syncope; Weakness (general) Allergies and Home Medications Allergies Coded Allergies: No Known Drug Allergies (Unverified , 04/24/21) Patient Home Medication List Home Medication List Reviewed: Yes Levothyroxine Sodium (Levothyroxine Sodium) 50 Mcg Tablet, 50 MCG PO DAILY, (Re ported) Entered as Reported by: NU LYONS on 04/24/21728 Metoprolol Succinate (Metoprolol Succinate) 100 Mg Tab.er.24h, 100 MG PO DAILY, (Reported) Entered as Reported by: NU LYONS on 04/24/21728 Rivaroxaban (Xarelto) 20 Mg Tablet, 20 MG PO DAILY, (Reported) Entered as Reported by: NU LYONS on 04/24/21728 Review of Systems Review of Systems Constitutional: No chills, No fever; malaise EENTM: no symptoms reported Respiratory: cough Cardiovascular: No chest pain; palpitations Gastrointestinal: No nausea, No vomiting Genitourinary: dysuria (matute catheter placed January 15) Skin: no symptoms reported Psychiatric/Neurological: Weakness (general ) Hematologic/Lymphatic: Easy Bleeding (taking blood thinner), Easy Bruising (taking blood thinner) Past Fohovgg-Ifiqdc-Razvjq Hx Patient Social History Tobacco Use?: No Use of E-Cig and/or Vaping dev: No Substance use?: No Alcohol Use?: No Seasonal Allergies Seasonal Allergies: No Past Medical History Surgery/Hospitalization HX: HTN; AFIB; Hypothyroidism, CVA Dec 2021, PEG feeding tube Dec 2021 Surgeries: Yes Abdominal, Appendectomy, Bladder Surgery, Gallbladder, Hysterectomy, Orthopedic Respiratory: No Cardiac: Yes Atrial Fibrillation, Hypertension Neurological: No Reproductive Disorders: No Genitourinary: Yes (stress incontinence) Gastrointestinal: Yes Diverticulosis Musculoskeletal: Yes Arthritis Endocrine: Yes Hypothyroidsim HEENT: No Cancer: No Psychosocial: No Integumentary: No Blood Disorders: No Physical Exam Vital Signs Vital Signs - First Documented 01/16/22 18:05 Temp 36.6 Pulse 74 Resp 18 B/P (MAP) 135/62 (86) Pulse Ox 96 O2 Delivery Room Air Capillary Refill : Height, Weight, BMI Height: '" Weight: lbs. oz. kg; BMI Method: General Appearance: No Apparent Distress HEENT: No Moist Mucous Membranes (slightly dry mucous membranes) Respiratory: Chest Non Tender, No Accessory Muscle Use, No Respiratory Distress, Decreased Breath Sounds Cardiovascular: Normal Peripheral Pulses, Irregularly Irregular, Tachycardia Gastrointestinal: Normal Bowel Sounds, No Pulsatile Mass, Non Tender, Soft Extremity: Normal Capillary Refill, Normal Inspection, Pedal Edema (trace to 1+ BLE. ), Other (air boots on BLE to help keep pressure off heels) Neurologic/Psychiatric: Alert, Oriented x3, Other (slow to answer questions) Skin: Warm/Dry Focused Exam Lactate Level 01/16/22 17:59: Lactic Acid Level 1.28 Lactic Acid Level Laboratory Tests Test 01/16/22 17:59 Lactic Acid Level 1.28 MMOL/L (0.50-2.00) Progress/Results/Core Measures Suspected Sepsis SIRS Temperature: Pulse: Respiratory Rate: Laboratory Tests 01/16/22 17:59: White Blood Count 15.9H Blood Pressure / Mean: 01/16/22 17:59: Lactic Acid Level 1.28 Laboratory Tests 01/16/22 17:59: Creatinine 0.67, INR Comment 1.6H, Platelet Count 492H, Total Bilirubin 0.6 Results/Orders Lab Results Laboratory Tests Test 01/16/22 17:59 01/16/22 18:15 Range/Units White Blood Count 15.9 H 4.3-11.0 10^3/uL Red Blood Count 4.01 3.80-5.11 10^6/uL Hemoglobin 13.1 11.5-16.0 g/dL Hematocrit 39 35-52 % Mean Corpuscular Volume 98 80-99 fL Mean Corpuscular Hemoglobin 33 25-34 pg Mean Corpuscular Hemoglobin Concent 33 32-36 g/dL Red Cell Distribution Width 13.4 10.0-14.5 % Platelet Count 492 H 130-400 10^3/uL Mean Platelet Volume 9.2 9.0-12.2 fL Immature Granulocyte % (Auto) 1 % Neutrophils (%) (Auto) 80 H 42-75 % Lymphocytes (%) (Auto) 9 L 12-44 % Monocytes (%) (Auto) 10 0-12 % Eosinophils (%) (Auto) 1 0-10 % Basophils (%) (Auto) 0 0-10 % Neutrophils # (Auto) 12.7 H 1.8-7.8 10^3/uL Lymphocytes # (Auto) 1.4 1.0-4.0 10^3/uL Monocytes # (Auto) 1.6 H 0.0-1.0 10^3/uL Eosinophils # (Auto) 0.1 0.0-0.3 10^3/uL Basophils # (Auto) 0.1 0.0-0.1 10^3/uL Immature Granulocyte # (Auto) 0.1 0.0-0.1 10^3/uL Neutrophils % (Manual) 84 % Lymphocytes % (Manual) 6 % Monocytes % (Manual) 9 % Eosinophils % (Manual) 0 % Basophils % (Manual) 0 % Band Neutrophils 1 % Prothrombin Time 19.2 H 12.2-14.7 SEC INR Comment 1.6 H 0.8-1.4 Activated Partial Thromboplast Time 40 H 24-35 SEC Sodium Level 131 L 135-145 MMOL/L Potassium Level 4.4 3.6-5.0 MMOL/L Chloride Level 100 98-107 MMOL/L Carbon Dioxide Level 22 21-32 MMOL/L Anion Gap 9 5-14 MMOL/L Blood Urea Nitrogen 35 H 7-18 MG/DL Creatinine 0.67 0.60-1.30 MG/DL Estimat Glomerular Filtration Rate 85 BUN/Creatinine Ratio 52 Glucose Level 187 H 70-105 MG/DL Lactic Acid Level 1.28 0.50-2.00 MMOL/L Calcium Level 8.5 8.5-10.1 MG/DL Corrected Calcium 9.9 8.5-10.1 MG/DL Magnesium Level 2.3 1.6-2.4 MG/DL Total Bilirubin 0.6 0.1-1.0 MG/DL Aspartate Amino Transf (AST/SGOT) 40 H 5-34 U/L Alanine Aminotransferase (ALT/SGPT) 28 0-55 U/L Alkaline Phosphatase 219 H 40-136 U/L Troponin I < 0.30 <0.30 NG/ML C-Reactive Protein 15.55 H <0.50 MG/DL Total Protein 6.1 L 6.4-8.2 GM/DL Albumin 2.2 L 3.2-4.5 GM/DL Urine Color YELLOW Urine Clarity SL CLOUDY Urine pH 6.0 5-9 Urine Specific [place] 1.010 L 1.016-1.022 Urine Protein NEGATIVE NEGATIVE Urine Glucose (UA) NEGATIVE NEGATIVE Urine Ketones NEGATIVE NEGATIVE Urine Nitrite NEGATIVE NEGATIVE Urine Bilirubin NEGATIVE NEGATIVE Urine Urobilinogen 1.0 < = 1.0 MG/DL Urine Leukocyte Esterase 1+ H NEGATIVE Urine RBC (Auto) 3+ H NEGATIVE Urine RBC 10-25 H /HPF Urine WBC 5-10 H /HPF Urine Squamous Epithelial Cells 2-5 /HPF Urine Crystals NONE /LPF Urine Bacteria TRACE /HPF Urine Casts NONE /LPF Urine Mucus NEGATIVE /LPF Urine Culture Indicated YES My Orders Orders - NU LYONS MD Cbc With Automated Diff (01/16/22 18:02) Comprehensive Metabolic Panel (01/16/22 18:02) Blood Culture (01/16/22 18:02) Ua Culture If Indicated (01/16/22 18:02) Chest 1 View Ap/Pa Only (01/16/22 18:02) Ed Iv/Invasive Line Start (01/16/22 18:02) Crp Fs (01/16/22 18:02) Lactic Acid Analyzer (01/16/22 18:02) Ekg Tracing (01/16/22 18:02) Monitor-Rhythm Ecg Trace Only (01/16/22 18:02) Protime With Inr (01/16/22 18:02) Partial Thromboplastin Time (01/16/22 18:02) Troponin I Fs (01/16/22 18:02) Magnesium (01/16/22 18:02) Ns Iv 1000 Ml (Sodium Chloride 0.9%) (01/16/22 18:07) Manual Differential (01/16/22 17:59) Urine Culture (01/16/22 18:15) Ct Chest W (01/16/22 18:59) Iohexol Injection (Omnipaque 350 Mg/Ml 1 (01/16/22 19:15) Received Contrast (Hold Metformin- Contr (01/16/22 19:15) Sodium Chloride Flush (Catheter Flush Sy (01/16/22 19:15) Ns (Ivpb) (Sodium Chloride 0.9% Ivpb Bag (01/16/22 19:15) Ceftriaxone 1 Gm Pre-Mix (Rocephin 1 Gm (01/16/22 21:07) Medications Given in ED Current Medications Medications Dose Ordered Sig/Alex Route Start Time Stop Time Status Last Admin Dose Admin Iohexol 100 ml ONCE ONCE IV 01/16/22 19:15 01/16/22 19:16 DC 01/16/22 19:42 75 ML Sodium Chloride 10 ml NEEDED PRN IV 01/16/22 19:15 01/16/22 21:38 DC 01/16/22 19:42 10 ML Sodium Chloride 100 ml ONCE ONCE IV 01/16/22 19:15 01/16/22 19:16 DC 01/16/22 19:42 100 ML Vital Signs/I&O 01/16/22 01/16/22 01/16/22 01/16/22 18:05 18:57 19:44 20:09 Temp 36.6 Pulse 74 106 98 106 Resp 18 B/P (MAP) 135/62 (86) 116/64 114/51 103/63 Pulse Ox 96 97 93 98 O2 Delivery Room Air Room Air Room Air Room Air 01/16/22 21:16 Pulse 120 Resp 18 B/P (MAP) 113/61 Pulse Ox 95 O2 Delivery Room Air Capillary Refill : Progress Note #1: Progress Note check labs, chest xray, ECG, blood cultures with lactic acid, UA with culture. IVF for hydration 1 L NS. Progress Note #2: Progress Note labs show elevated WBC count consistent with labs from [place] with WBC of 15.9. She has Hgb 13.1. Chemistry shows normal lactic acid of 1.28. Troponin <0.3. Cr ok at 0.67. ECG shows atrial fibrillation with HR117. Elevated CRP to go with infection/inflammation. Elevated coags to go wtih being on blood thinner. UA from indwelling catheter shows UTI findings and some blood, culture was reflexed. CXR shows pulmonary nodule and some vascular congestion changes. Recommend CT scan to evaluate further. Progress Note #3: Progress Note CT report shows mild diffuse vascular congestion and pneumonitis findings along with 1.2 cm RUL pulmonary nodule. Recommend repeat scan in few months to verify stability vs PET scan to further evaluate the nodule. Updated pt and her children. They had initially been concerned she had pneumonia in addition to UTI and possible sepsis so they had requested she come here for eval and thought she would need transfer to or larger facility for higher level of care than [facility]. Pt is still full code and they are wanting aggressive treatment for her. Will give 1 gm Rocephin IV to try and help boost treatment for UTI in addition to IM shot given on 01/15 as well as started antibiotic through PEG tube. Discharge back to [place] to continue antibiotics and give some time for this to work rather than transfer to acute medical care facility since there is no sepsis or pneumonia on top of UTI. She should need additional time for antibiotic to work for her UTI. She is already on meds for A. Fib and CHF so have her continue these meds. ECG Initial ECG Impression Date: Jan 16, 2022 Initial ECG Impression Time: 18:20 Initial ECG Rhythm: A Fib/Flutter Initial ECG Comparisson: Unchanged Comment Atrial fibrillation with heart rate 117 bpm. Borderline T wave abnormalities in the inferior leads with flattening T waves. QT interval 320 ms with a QTc interval 447 ms. There is no acute ST elevation. Overall appears similar to prior tracings in system. Diagnostic Imaging Diagonstic Imaging: Xray Plain Films/CT/US/NM/MRI: chest Comments [facility] [place], [place] NAME: SERENA MIRZA REC#: [id number] PT STATUS: REG ER : 1935 PHYSICIAN: NU LYONS MD ADMIT DATE: 01/16/22/ER FS Signed Date of Exam:01/16/22 CHEST 1 VIEW AP/PA ONLY INDICATION: Cough Portable AP view of the chest is obtained with comparison made study of 12/30/2021. Heart size and pulmonary vascularity are at the upper limits of normal. There is mild overall improvement in aeration of the lungs however there is an approximately 1 cm nodule now visible in the lateral aspect of the right upper lobe. No pneumothorax identified. There is slight blunting of the left costophrenic sulcus. IMPRESSION: Improving pulmonary venous congestion, possibly on the basis of congestive heart failure. There may be a small amount of left pleural fluid present. Approximately 1 cm nodular focus projects over the lateral aspect of the right upper lobe. The possibility of lung mass such as developing tumor is not excluded. CT imaging of the chest should be considered for assessment. Dictated by: Dictated on workstation # [id number] Dict: 01/16/228 Trans: 01/16/222032 [facility] [id number] Interpreted by: MARY ANN PULLIAM MD Electronically signed by: MARY ANN PULLIAM MD 01/16/222032 Reviewed: Reviewed by Fl Diagonstic Imaging: CT Plain Films/CT/US/NM/MRI: chest Comments [facility] [place] [facility], [place] NAME: SERENA MIRZA [facility] REC#: [id number] PT STATUS: REG ER : 1935 PHYSICIAN: NU LYONS MD ADMIT DATE: 01/16/22/ER FS Signed Date of Exam:01/16/22 CT CHEST W PROCEDURE: CT chest with contrast only. TECHNIQUE: Multiple contiguous axial images were obtained through the chest after administration of intravenous contrast. Auto Exposure Controls were utilized during the CT exam to meet ALARA standards for radiation dose reduction. INDICATION: Abnormal chest x-ray with possible lung mass There is mild groundglass density throughout the lungs which may be due to edema or pneumonitis with linear densities in the lung bases likely due to atelectasis or scarring. There is an approximately 1.2 cm nodule with mild marginal irregularity in the right upper lobe, laterally at the level of aortic arch. There is questionable additional 0.5 cm nodule in the subpleural aspect of the right lower lobe, however, this is in region of atelectasis and pneumonitis and may be artifactual. There is no evidence of pathologically enlarged adenopathy. Coronary artery calcification is noted. IMPRESSION: Mild background edema and/or pneumonitis with 1.2 cm suspicious nodule in the periphery of the right upper lobe. This may represent pulmonary neoplasm, however, pneumonitis and atelectasis limits evaluation. This could be further assessed with either PET scan or short-term CT follow-up. If this finding persists or increases, biopsy may be necessary. Dictated by: Dictated on workstation # [id number] Dict: 01/16/221945 Trans: 01/16/222033 [facility] [id number] Interpreted by: MARY ANN PULLIAM MD Electronically signed by: MARY ANN PULLIAM MD 01/16/222033 Reviewed: Reviewed by Me Departure Impression Primary Impression: Cystitis with hematuria Additional Impressions: Right upper lobe pulmonary nodule Chronic atrial fibrillation Chronic heart failure Qualified Codes: I50.9 - Heart failure, unspecified Disposition: 01 HOME, SELF-CARE Condition: Stable Departure-Patient Inst. Decision time for Depature: 21:09 Referrals: GEETA BUTT MD (PCP/Family) Primary Care Physician Patient Instructions: Atrial Fibrillation and Atrial Flutter ED, Heart Failure ED, Urinary Tract Infection, Adult ED, Pulmonary Nodule Add. Discharge Instructions: She was given another dose of antibiotic, Ceftriaxone 1 gm IV here in the ED. Continue antibiotic by feeding tube. Follow up in 3-6 months for repeat scan to see if any change in pulmonary nodule. Continue on medicines for atrial fibrillation and heart failure All discharge instructions reviewed with patient and/or family. Voiced understanding. NU LYONS MD Jan 16, 2022 18:14
[2022-01-16 18:33] LABS: POTASSIUM 4.4 MMOL/L (3.6-5.0)
[2022-01-16 18:34] LABS: ALBUMIN 2.2 GM/DL (3.2-4.5); BILIRUBIN,TOTAL 0.6 MG/DL (0.1-1.0); CALCIUM 8.5 MG/DL (8.5-10.1); CREATININE SERUM 0.67 MG/DL (0.60-1.30); MAGNESIUM 2.3 MG/DL (1.6-2.4); TOTAL PROTEIN 6.1 GM/DL (6.4-8.2)
[2022-01-16 18:35] LABS: BACTERIA,URINE TRACE /HPF
[2022-01-16 18:47] LABS: BAND NEUTROPHILS 1 %; BASOPHILS % (MANUAL) 0 %; EOSINOPHILS % (MANUAL) 0 %; LYMPHOCYTES % (MANUAL) 6 %; MONOCYTES % (MANUAL) 9 %; NEUTROPHILS % (MANUAL) 84 %; WHITE BLOOD COUNT 15.9 10^3/uL (4.3-11.0)
[2022-01-16] MEDS ORDERED: NS 100 ML (IVPB) BAG IV ONE (19:15)
[2022-01-16] MEDS ORDERED: CATHETER FLUSH 10 ML SYR IV PRN (19:15)
[2022-01-16] MEDS ORDERED: HOLD METFORMIN - RECEIVED CONTRAST 20 ML VIAL IV SCH (19:15)
[2022-01-16] MEDS ORDERED: IOHEXOL 350 MG/ML 100 ML (OMNIPAQUE 350) VIAL IV ONE (19:15)
--- NOTE | 2022-01-16 19:58 | Diagnostic Imaging Report ---
PROCEDURE: CT chest with contrast only. TECHNIQUE: Multiple contiguous axial images were obtained through the chest after administration of intravenous contrast. Auto Exposure Controls were utilized during the CT exam to meet ALARA standards for radiation dose reduction. INDICATION: Abnormal chest x-ray with possible lung mass There is mild groundglass density throughout the lungs which may be due to edema or pneumonitis with linear densities in the lung bases likely due to atelectasis or scarring. There is an approximately 1.2 cm nodule with mild marginal irregularity in the right upper lobe, laterally at the level of aortic arch. There is questionable additional 0.5 cm nodule in the subpleural aspect of the right lower lobe, however, this is in region of atelectasis and pneumonitis and may be artifactual. There is no evidence of pathologically enlarged adenopathy. Coronary artery calcification is noted. IMPRESSION: Mild background edema and/or pneumonitis with 1.2 cm suspicious nodule in the periphery of the right upper lobe. This may represent pulmonary neoplasm, however, pneumonitis and atelectasis limits evaluation. This could be further assessed with either PET scan or short-term CT follow-up. If this finding persists or increases, biopsy may be necessary. Dictated by: Dictated on workstation # [id number]
[2022-01-16] MEDS ORDERED: cefTRIAXone 1 GM PRE-MIX 50 ML IV STA (21:07)
== END 2022-01-16 21:36 | disposition home or self-care (01) ==
LOC: EDUNIT# 17:50 → ER FS 17:52
DX: N30.91 Cystitis, unspecified with hematuria (principal); R91.1 Solitary pulmonary nodule; I48.20 Chronic atrial fibrillation, unspecified; I50.9 Heart failure, unspecified
CPT/HCPCS: 36415; 71045; 71260; 80053; 81000; 83605; 83735; 84484; 85007; 85027; 85610; 85730; 86141; 87040; 87077; 87088; 93005; 93041; Q9967

== ENCOUNTER → 2022-03-16 | Outpatient (CLI) | payer MEDICARE ==
[2022-03-16 10:46] LABS: BILIRUBIN,TOTAL 0.7 MG/DL (0.1-1.0); CALCIUM 9.4 MG/DL (8.5-10.1); CREATININE SERUM 0.55 MG/DL (0.60-1.30); POTASSIUM 4.5 MMOL/L (3.6-5.0)
[2022-03-16 10:47] LABS: ALBUMIN 3.3 GM/DL (3.2-4.5); TOTAL PROTEIN 6.3 GM/DL (6.4-8.2)
== END ==
PROVIDERS: ATTEND Family Medicine
DX: I63.411 Cerebral infarction due to embolism of right middle cerebral artery (principal)
CPT/HCPCS: 36415; 80053

== ENCOUNTER → 2022-04-06 | Outpatient (CLI) | payer MEDICARE ==
[2022-04-06 17:39] LABS: BACTERIA,URINE LARGE /HPF; BILIRUBIN,URINE NEGATIVE (NEGATIVE); CLARITY,URINE CLOUDY; COLOR,URINE YELLOW; GLUCOSE, URINE (UA) NEGATIVE (NEGATIVE); KETONES,URINE TRACE (NEGATIVE); LEUKOCYTE ESTERASE ,URINE 2+ (NEGATIVE); NITRITE,URINE POSITIVE (NEGATIVE); PROTEIN,URINE TRACE (NEGATIVE); WBC,URINE TNTC /HPF
== END ==
PROVIDERS: ATTEND Family Medicine
DX: R82.79 Other abnormal findings on microbiological examination of urine (principal)
CPT/HCPCS: 81000; 87088

== ENCOUNTER 2022-04-14 16:09 | Emergency (ER) | payer MEDICARE ==
[2022-04-14] MEDS ORDERED: ONDANSETRON 4 MG/2 ML (SDV) Z0FRAN IVP STA (16:18)
[2022-04-14] MEDS ORDERED: NS IV 1000 ML 1,000 ML IV STA ×2 (16:18→17:27)
[2022-04-14 16:27] LABS: BILIRUBIN,URINE NEGATIVE (NEGATIVE); CLARITY,URINE CLEAR; GLUCOSE, URINE (UA) NEGATIVE (NEGATIVE); KETONES,URINE TRACE (NEGATIVE); LEUKOCYTE ESTERASE ,URINE 2+ (NEGATIVE); NITRITE,URINE POSITIVE (NEGATIVE); PROTEIN,URINE TRACE (NEGATIVE)
[2022-04-14 16:30] LABS: BACTERIA,URINE LARGE /HPF; COLOR,URINE DARK YELLOW; WBC,URINE 50-100 /HPF
--- NOTE | 2022-04-14 16:35 | ED General ---
General Stated Complaint: DECREASED URINE OUTPUT Source of Information: Patient, Long Term Records History of Present Illness Date Seen by Provider: Apr 14, 2022 Time Seen by Provider: 16:09 Initial Comments 86-year-old female presenting from the [facility] with complaints of decreased urine output and decreased oral intake. The patient herself states that she has no complaints or concerns. She has had prior stroke but is communicating with us. She states she has had some nausea and headache at times but none right now. She complains of pain in her left arm that has been present since the stroke. She is currently taking antibiotics for a urinary tract infection and has an indwelling Titus catheter. Her urine is dark in color. Family insisted on the patient coming to be evaluated in the emergency department today. Timing/Duration: 1 Week Severity: Moderate Associated Systoms: No Chest Pain; Cough (intermittent); No Diaphoresis, No Fever/Chills; Headaches (intermittent), Loss of Appetite, Malaise, Nausea/Vomiting (occasionally); No Rash, No Seizure; Shortness of Air; No Syncope, No Weakness Allergies and Home Medications Allergies Coded Allergies: No Known Drug Allergies (Unverified , 04/24/21) Patient Home Medication List Home Medication List Reviewed: Yes Levofloxacin/D5w (Levofloxacin-D5w 500 mg/100 ml) 500 Mg/100 Ml Piggyback, 500 MG IV DAILY Prescribed by: NU LYONS on 04/14/221923 Levothyroxine Sodium (Levothyroxine Sodium) 50 Mcg Tablet, 50 MCG PO DAILY, (Reported) Entered as Reported by: NU LYONS on 04/24/21728 Metoprolol Succinate (Metoprolol Succinate) 100 Mg Tab.er.24h, 100 MG PO DAILY, (Reported) Entered as Reported by: NU LYONS on 04/24/21728 Rivaroxaban (Xarelto) 20 Mg Tablet, 20 MG PO DAILY, (Reported) Entered as Reported by: NU LYONS on 04/24/21728 Review of Systems Review of Systems Constitutional: No chills, No fever EENTM: no symptoms reported Respiratory: cough (Mild intermittent cough) Cardiovascular: no symptoms reported Gastrointestinal: other (Decreased oral intake) Genitourinary: see HPI (Indwelling Titus catheter and decreased urine output) Musculoskeletal: other (Chronic weakness in the left side of the body secondary to prior stroke) Skin: No rash Psychiatric/Neurological: Denies Headache Hematologic/Lymphatic: Easy Bleeding, Easy Bruising (Taking a blood thinner) Immunological/Allergic: no symptoms reported Past [id number] Hx Patient Social History Tobacco Use?: No Use of E-Cig and/or Vaping dev: No Substance use?: No Alcohol Use?: No Seasonal Allergies Seasonal Allergies: No Past Medical History Surgery/Hospitalization HX: HTN; AFIB; Hypothyroidism, CVA Dec 2021, PEG feeding tube Dec 2021 Surgeries: Yes Abdominal, Appendectomy, Bladder Surgery, Gallbladder, Hysterectomy, Orthopedic Respiratory: No Cardiac: Yes Atrial Fibrillation, Hypertension Neurological: No Reproductive Disorders: No Genitourinary: Yes (stress incontinence) Gastrointestinal: Yes Diverticulosis Musculoskeletal: Yes Arthritis Endocrine: Yes Hypothyroidsim HEENT: No Cancer: No Psychosocial: No Integumentary: No Blood Disorders: No Physical Exam Vital Signs Vital Signs - First Documented 04/14/22 16:56 Temp 36.5 Pulse 87 Resp 18 B/P (MAP) 100/82 (88) Pulse Ox 92 O2 Delivery Room Air Capillary Refill : Height, Weight, BMI Height: '" Weight: lbs. oz. kg; BMI Method: General Appearance: No Apparent Distress, Chronically ill HEENT: PERRL/EOMI; No Moist Mucous Membranes (Slightly dry mucous membranes) Neck: Full Range of Motion, Supple Respiratory: Chest Non Tender, Lungs Clear, Normal Breath Sounds, No Accessory Muscle Use, No Respiratory Distress Cardiovascular: Regular Rate, Rhythm, Normal Peripheral Pulses Gastrointestinal: Normal Bowel Sounds, No Pulsatile Mass, Non Tender, Soft Rectal: Deferred Extremity: Normal Capillary Refill, Normal Inspection, Pedal Edema (Trace pedal edema bilaterally), Other (Decreased range of motion of the left arm and left leg secondary to prior stroke) Neurologic/Psychiatric: Alert, Oriented x3, Normal Mood/Affect, biologics specialist II-XII Norm as Tested Skin: Warm/Dry Focused Exam Lactate Level 04/14/22 17:05: Lactic Acid Level 1.24 Lactic Acid Level Laboratory Tests Test 04/14/22 17:05 Lactic Acid Level 1.24 MMOL/L (0.50-2.00) Progress/Results/Core Measures Suspected Sepsis SIRS Temperature: Pulse: Respiratory Rate: Laboratory Tests 04/14/22 16:32: White Blood Count 11.4H Blood Pressure / Mean: 04/14/22 17:05: Lactic Acid Level 1.24 Laboratory Tests 04/14/22 16:32: Creatinine 0.80, Platelet Count 329, Total Bilirubin 1.2H Results/Orders Lab Results Laboratory Tests Test 04/14/22 16:00 04/14/22 16:32 04/14/22 17:05 Range/Units Urine Color DARK YELLOW Urine Clarity CLEAR Urine pH 6.0 5-9 Urine Specific [place] 1.020 1.016-1.022 Urine Protein TRACE H NEGATIVE Urine Glucose (UA) NEGATIVE NEGATIVE Urine Ketones TRACE H NEGATIVE Urine Nitrite POSITIVE H NEGATIVE Urine Bilirubin NEGATIVE NEGATIVE Urine Urobilinogen 2.0 < = 1.0 MG/DL Urine Leukocyte Esterase 2+ H NEGATIVE Urine RBC (Auto) 3+ H NEGATIVE Urine RBC NONE /HPF Urine WBC 50-100 H /HPF Urine Crystals NONE /LPF Urine Bacteria LARGE H /HPF Urine Casts NONE /LPF Urine Mucus NEGATIVE /LPF Urine Culture Indicated YES White Blood Count 11.4 H 4.3-11.0 10^3/uL Red Blood Count 4.09 3.80-5.11 10^6/uL Hemoglobin 13.8 11.5-16.0 g/dL Hematocrit 42 35-52 % Mean Corpuscular Volume 103 H 80-99 fL Mean Corpuscular Hemoglobin 34 25-34 pg Mean Corpuscular Hemoglobin Concent 33 32-36 g/dL Red Cell Distribution Width 14.2 10.0-14.5 % Platelet Count 329 130-400 10^3/uL Mean Platelet Volume 8.5 L 9.0-12.2 fL Immature Granulocyte % (Auto) 0 % Neutrophils (%) (Auto) 70 42-75 % Lymphocytes (%) (Auto) 11 L 12-44 % Monocytes (%) (Auto) 9 0-12 % Eosinophils (%) (Auto) 9 0-10 % Basophils (%) (Auto) 0 0-10 % Neutrophils # (Auto) 8.0 H 1.8-7.8 10^3/uL Lymphocytes # (Auto) 1.2 1.0-4.0 10^3/uL Monocytes # (Auto) 1.0 0.0-1.0 10^3/uL Eosinophils # (Auto) 1.1 H 0.0-0.3 10^3/uL Basophils # (Auto) 0.0 0.0-0.1 10^3/uL Immature Granulocyte # (Auto) 0.0 0.0-0.1 10^3/uL Sodium Level 136 135-145 MMOL/L Potassium Level 4.1 3.6-5.0 MMOL/L Chloride Level 103 98-107 MMOL/L Carbon Dioxide Level 22 21-32 MMOL/L Anion Gap 11 5-14 MMOL/L Blood Urea Nitrogen 22 H 7-18 MG/DL Creatinine 0.80 0.60-1.30 MG/DL Estimat Glomerular Filtration Rate 71 BUN/Creatinine Ratio 28 Glucose Level 104 70-105 MG/DL Calcium Level 9.0 8.5-10.1 MG/DL Corrected Calcium 9.6 8.5-10.1 MG/DL Total Bilirubin 1.2 H 0.1-1.0 MG/DL Aspartate Amino Transf (AST/SGOT) 19 5-34 U/L Alanine Aminotransferase (ALT/SGPT) 9 0-55 U/L Alkaline Phosphatase 158 H 40-136 U/L C-Reactive Protein 3.04 H <0.50 MG/DL Pro-B-Type Natriuretic Peptide 1294.0 H <75.0 PG/ML Total Protein 6.7 6.4-8.2 GM/DL Albumin 3.2 3.2-4.5 GM/DL Lactic Acid Level 1.24 0.50-2.00 MMOL/L My Orders Orders - NU LYONS MD Cbc With Automated Diff (04/14/22 16:18) Comprehensive Metabolic Panel (04/14/22 16:18) Blood Culture (04/14/22 16:18) Ua Culture If Indicated (04/14/22 16:18) Chest 1 View Ap/Pa Only (04/14/22 16:18) Ed Iv/Invasive Line Start (04/14/22 16:18) Crp Fs (04/14/22 16:18) Lactic Acid Analyzer (04/14/22 16:18) Ns Iv 1000 Ml (Sodium Chloride 0.9%) (04/14/22 16:18) Ondansetron Injection (Zofran Injectio (04/14/22 16:18) Probnp Fs (04/14/22 16:18) Urine Culture (04/14/22 16:00) Levofloxacin 500 Mg/100 Ml Iv (Levaquin (04/14/22 16:59) Ns Iv 1000 Ml (Sodium Chloride 0.9%) (04/14/22 17:27) Vital Signs/I&O 04/14/22 04/14/22 16:56 19:26 Temp 36.5 Pulse 87 81 Resp 18 16 B/P (MAP) 100/82 (88) 143/64 Pulse Ox 92 92 O2 Delivery Room Air Room Air Capillary Refill : Progress Note #1: Progress Note As patient had no specific complaints we will obtain general blood work and blood cultures with a lactic acid to evaluate for sepsis. Also repeat chest x- ray to see if there was any acute abnormality in her chest compared to prior exams. Administer IV fluids normal saline 1 L IV fluid bolus for hydration. Progress Note #2: Progress Note Labs show white blood cell count of 11.4. Her urinalysis does show signs of infection with nitrites and leukocyte esterase as well as bacteria. Based on prior urine cultures she had better sensitivity for Levaquin. Give 500 mg of L evaquin IV. Chemistry shows creatinine is normal at 0.8. She had a negative lactic acid of 1.24 so no sign of sepsis based off of that. Her CRP was elevated to go along with inflammatory process. Progress Note #3: Progress Note A second liter of normal saline was administered while the IV Levaquin was infusing. Patient was also drinking water here in the emergency department. Counseled family and patient that at this point she had nothing to say she needed to be admitted to the hospital. Will check with the staff at [facility] to see if they are able to use her IV to administer medications or possibly fluids. After speaking with Nurses at [facility] they did say they could utilize the IV to administer IV levaquin. Will send order for antibiotic to [facility] and have the staff check with PCP about further medicines or orders for the IV. Diagnostic Imaging Diagonstic Imaging: Xray Plain Films/CT/US/NM/MRI: chest Comments NAME: SERENA MIRZA [facility] REC#: [id number] PT STATUS: REG ER : 1935 PHYSICIAN: NU LYONS MD ADMIT DATE: 04/14/22/ER FS Draft Date of Exam:04/14/22 CHEST 1 VIEW AP/PA ONLY INDICATION: Cough. EXAMINATION: Chest, 04/14/2022. COMPARISON: 01/16/2022. FINDINGS: The heart is prominent. Pulmonary vasculature unremarkable. There is atelectasis or scarring in the right midlung. The remaining lungs clear. No focal infiltrates or effusions. IMPRESSION: Chronic findings with no acute cardiopulmonary process. Dictated on workstation # [id number] Dict: 04/14/22 1630 Trans: 04/14/22 1633 [facility] [id number] Interpreted by: SHARIFA KERN MD Electronically signed by: Reviewed: Reviewed by Me Departure Impression Primary Impression: UTI (urinary tract infection) due to urinary indwelling Titus catheter Qualified Codes: T83.511A - Infection and inflammatory reaction due to indwelling urethral catheter, initial encounter; N39.0 - Urinary tract infection, site not specified Additional Impression: Dehydration Disposition: 01 HOME, SELF-CARE Condition: Stable Departure-Patient Inst. Decision time for Depature: 18:23 Referrals: SELFGEETA MD (PCP) Primary Care Physician Patient Instructions: Urinary Tract Infection, Adult ED, Dehydration, Adult ED Add. Discharge Instructions: Encourage drinking more fluids and staying better hydrated. Stop the Macrobid (Nitrofurantoin) and switch to Levofloxacin (Levaquin) based o n prior history of urine cultures Follow up with primary care provider and check with them about IV fluids or how they want to manage her hydration Scripts Levofloxacin/D5w (Levofloxacin-D5w 500 mg/100 ml) 500 Mg/100 Ml Piggyback 500 MG IV DAILY for UTI for 9 Days, #900 ML 0 Refills 500 mg IV daily for 9 more days. Next dose due April 15 at 1800 Prov: NU LYONS MD 04/14/22 NU LYONS MD Apr 14, 2022 16:35
[2022-04-14 16:44] LABS: BASOPHILS % (AUTO) 0 % (0-10); EOSINOPHILS # (AUTO) 1.1 10^3/uL (0.0-0.3); EOSINOPHILS % (AUTO) 9 % (0-10); HEMATOCRIT 42 % (35-52); HEMOGLOBIN 13.8 g/dL (11.5-16.0); LYMPHOCYTES # (AUTO) 1.2 10^3/uL (1.0-4.0); LYMPHOCYTES % (AUTO) 11 % (12-44); MEAN CORPUSCULAR HEMOGLOBIN 34 pg (25-34); MEAN CORPUSCULAR HGB CONC 33 g/dL (32-36); MEAN CORPUSCULAR VOLUME 103 fL (80-99); MEAN PLATELET VOLUME 8.5 fL (9.0-12.2); MONOCYTES % (AUTO) 9 % (0-12); NEUTROPHILS % (AUTO) 70 % (42-75); PLATELET COUNT 329 10^3/uL (130-400); WHITE BLOOD COUNT 11.4 10^3/uL (4.3-11.0)
[2022-04-14 17:06] LABS: POTASSIUM 4.1 MMOL/L (3.6-5.0)
[2022-04-14 17:07] LABS: ALBUMIN 3.2 GM/DL (3.2-4.5); BILIRUBIN,TOTAL 1.2 MG/DL (0.1-1.0); CREATININE SERUM 0.8 MG/DL (0.60-1.30); TOTAL PROTEIN 6.7 GM/DL (6.4-8.2)
[2022-04-14] MEDS ORDERED: LEVO500P12 IV (19:24)
[2022-04-14 19:26] VITALS: BP 143/64
== END 2022-04-14 19:47 | disposition home or self-care (01) ==
LOC: EDUNIT# 16:09 → ER FS 16:11
DX: T83.511A Infection and inflammatory reaction due to indwelling urethral catheter, initial encounter (principal); E86.0 Dehydration; R60.0 Localized edema; I69.398 Other sequelae of cerebral infarction; R79.82 Elevated C-reactive protein (CRP); Z90.49 Acquired absence of other specified parts of digestive tract; Z90.710 Acquired absence of both cervix and uterus; Z79.2 Long term (current) use of antibiotics
CPT/HCPCS: 36415; 71045; 80053; 81000; 83605; 83880; 85025; 86141; 87040; 87077; 87088; 87186